=== PATIENT | female | born 1995 | race African-American/Black ===

== ENCOUNTER 2017-06-26 17:01 | Inpatient (IN) ==
[2017-06-26] MEDS ORDERED: BUTORPHANOL 2 MG/ML VIAL IV PRN (17:22)
[2017-06-26] MEDS ORDERED: MEPERIDINE 50 MG/1 ML VIAL IV PRN (17:22)
[2017-06-26] MEDS ORDERED: ONDANSETRON 4 MG/2 ML VIAL IV PRN (17:22)
[2017-06-26] MEDS ORDERED: LACTATED RINGERS 250 ML IV ONE (17:22)
[2017-06-26] MEDS ORDERED: AMPICILLIN INJ 2,000 MG in SODIUM CHLORIDE 0.9% 100 ML IV ONE (17:24)
[2017-06-26] MEDS ORDERED: ePHEDrine 50 MG/ML AMP IV PRN (17:25)
[2017-06-26] MEDS ORDERED: CITRIC ACID/SODIUM CITRATE 30 ML UDCUP PO ONE (17:25)
[2017-06-26] MEDS ORDERED: PROMETHAZINE 25 MG/1 ML VIAL IM ONE (17:25)
[2017-06-26] MEDS ORDERED: ONDANSETRON 4 MG/2 ML VIAL IV ONE (17:25)
[2017-06-26] MEDS ORDERED: hydrOXYzine HCL 25 MG/1 ML VIAL IM PRN (17:25)
[2017-06-26] MEDS ORDERED: diphenhydrAMINE 50 MG/1 ML VIAL IV PRN ×2 (17:25)
[2017-06-26] MEDS ORDERED: FAMOTIDINE 20 MG/2 ML VIAL IV ONE (17:25)
[2017-06-26] MEDS ORDERED: LACTATED RINGERS 1,000 ML IV ONE (17:25)
[2017-06-26] MEDS ORDERED: OXYTOCIN/LR 20 UNIT/1,000 ML BAG IV SCH (17:30)
[2017-06-26] MEDS ORDERED: LACTATED RINGERS 1,000 ML IV SCH (17:30)
[2017-06-26] MEDS ORDERED: fentaNYL 2 MCG/ROPIV 0.2% EPID 150 ML EPIDURAL SCH (17:30)
[2017-06-26 17:37] LABS: Basophils % 0.1 % (0.0-0.8); Eosinophils # 0.1 10*3/uL (0.0-0.87); Eosinophils % 0.5 % (0.00-10.9); Hematocrit 37.4 VOL% (35.7-47.0); Hemoglobin 11.9 GM/DL (12.0-16.0); Immature Granulocytes % 0.4 %; Immature Granulocytes Absolute 0.06 #; Lymphocytes # 2.6 10*3/uL (1.4-4.0); Lymphocytes % 19.4 % (21.3-54.2); Mean Corpuscular HGB Conc 31.8 GM/DL (32-36); Mean Corpuscular Hemoglobin 29 PG (27-34); Mean Corpuscular Volume 91.9 FL (87-102); Mean Platelet Volume 10.5 FL (9.6-12.0); Monocytes # 1.1 10*3/uL (0.11-0.8); Monocytes % 8.2 % (1.7-12.7); Neutrophils # 9.6 10*3/uL (1.4-7.4); Neutrophils % 71.4 % (38.7-73.9); Platelet Count 280 T/CUMM (130-400); Red Blood Count 4.07 MC/CUMM (3.8-5.5); White Blood Count 13.4 T/CUMM (4-12)
[2017-06-26] MEDS ORDERED: miSOPROStol 200 MCG TABLET ONE (18:58)
[2017-06-26] MEDS ORDERED: LIDOCAINE 1% 50 ML VIAL ONE (19:00)
[2017-06-26 19:37] LABS: Calcium 8.7 MG/DL (8.5-10.1)
[2017-06-26 19:38] LABS: Alanine Aminotransferase 25 U/L (13-56); Albumin 2.7 G/DL (3.4-5.0); Aspartate Amino Transferase 20 U/L (0-37); Bilirubin,Total < 0.39 MG/DL (0.2-1.0); Total Protein 6.7 G/DL (6.4-8.3)
[2017-06-26 19:39] LABS: Blood Urea Nitrogen 9 MG/DL (7-18); Glucose 96 MG/DL (74-106); Osmolality,Calculated 271.8 MOS/KG (273-304); Sodium 137 MMOL/L (136-145)
[2017-06-26 19:42] LABS: Apearance,Urine CLEAR (Clear); Bilirubin,Urine Negative (Negative); Blood, Urine Small mg/dL (Negative); Glucose,Urine (UA) Negative (Negative); Hyaline Casts,Urine 4 /LPF (0-3); Ketones,Urine Negative (Negative); Mucus,Urine Occasional /LPF (Occasional); Nitrite,Urine Negative (Negative); Protein,Urine 30 MG/DL; RBC,Urine 24 /HPF (0-4); Squamous Epithelial Cell,Urine Occasional /HPF (0-10); Urine Color Yellow (Yellow); Urine Specific Gravity 1.032 (1.001-1.035); Urine Urobilinogen < 2.0 EU/DL (0.2-1.0); WBC,Urine 2 /HPF (0-6)
[2017-06-26 19:53] LABS: Alkaline Phosphatase 200 U/L (45-117)
[2017-06-26 20:17] LABS: Cord Arterial Blood HCO3 17.1 MMOL/L; Cord Venous Blood HCO3 25.7 MMOL/L; Cord Venous Blood PO2 30.7 MMHG
[2017-06-27 05:33] LABS: Basophils % 0.2 % (0.0-0.8); Eosinophils # 0.1 10*3/uL (0.0-0.87); Eosinophils % 0.7 % (0.00-10.9); Hematocrit 33.4 VOL% (35.7-47.0); Hemoglobin 10.9 GM/DL (12.0-16.0); Immature Granulocytes % 0.4 %; Immature Granulocytes Absolute 0.06 #; Lymphocytes # 2.4 10*3/uL (1.4-4.0); Lymphocytes % 16.7 % (21.3-54.2); Mean Corpuscular HGB Conc 32.6 GM/DL (32-36); Mean Corpuscular Hemoglobin 30 PG (27-34); Mean Corpuscular Volume 90.5 FL (87-102); Mean Platelet Volume 10.9 FL (9.6-12.0); Monocytes # 1.1 10*3/uL (0.11-0.8); Monocytes % 7.5 % (1.7-12.7); Neutrophils # 10.9 10*3/uL (1.4-7.4); Neutrophils % 74.5 % (38.7-73.9); Platelet Count 261 T/CUMM (130-400); Red Blood Count 3.69 MC/CUMM (3.8-5.5); White Blood Count 14.6 T/CUMM (4-12)
[2017-06-27 13:13] LABS: Basophils % 0.1 % (0.0-0.8); Eosinophils # 0.1 10*3/uL (0.0-0.87); Eosinophils % 0.7 % (0.00-10.9); Hematocrit 34.8 VOL% (35.7-47.0); Hemoglobin 11.4 GM/DL (12.0-16.0); Immature Granulocytes % 0.6 %; Immature Granulocytes Absolute 0.09 #; Lymphocytes # 2.7 10*3/uL (1.4-4.0); Lymphocytes % 19.3 % (21.3-54.2); Mean Corpuscular HGB Conc 32.8 GM/DL (32-36); Mean Corpuscular Hemoglobin 30 PG (27-34); Mean Corpuscular Volume 91.6 FL (87-102); Mean Platelet Volume 10.5 FL (9.6-12.0); Monocytes # 0.8 10*3/uL (0.11-0.8); Neutrophils # 10.1 10*3/uL (1.4-7.4); Neutrophils % 73.3 % (38.7-73.9); Platelet Count 265 T/CUMM (130-400); Red Cell Distribution Width 15.3 % (9.3-17.3); White Blood Count 13.9 T/CUMM (4-12)
[2017-06-27 13:26] LABS: INR 0.9; PT Patient Result 9.4 SECS; Partial Thromboplastin Time 29.6 SECS (0-40)
[2017-06-27 13:45] LABS: Alanine Aminotransferase 21 U/L (13-56); Albumin 2.5 G/DL (3.4-5.0); Alkaline Phosphatase 182 U/L (45-117); Aspartate Amino Transferase 22 U/L (0-37); Bilirubin,Total < 0.39 MG/DL (0.2-1.0); Blood Urea Nitrogen 9 MG/DL (7-18); Calcium 8.7 MG/DL (8.5-10.1); Glucose 99 MG/DL (74-106); Osmolality,Calculated 273.7 MOS/KG (273-304); Potassium 3.8 MMOL/L (3.5-5.1); Sodium 138 MMOL/L (136-145); Total Protein 6.1 G/DL (6.4-8.3); Uric Acid 5.9 MG/DL (2.6-6.0)
[2017-06-28] MEDS: IBUPROFEN 800 MG TABLET PO PRN ×2 (00:43→11:10)
[2017-06-28 08:10] VITALS: BP 119/74
== END 2017-06-28 12:05 | disposition home or self-care (01) | DRG 560 ==
LOC: N.LDOUT 17:01 → N.LD 17:05 → N.OB 22:00
PROVIDERS: ADMIT Obstetrics & Gynecology; ATTEND Obstetrics & Gynecology